=== PATIENT | female | born 1950 | race Caucasian/White ===

== ENCOUNTER 2017-11-12 12:42 | Emergency (ER) | payer MEDICARE ==
[2017-11-12] MEDS ORDERED: Ketorolac 30 MG/ML SDV IVPUSH ONE (13:02)
[2017-11-12] MEDS ORDERED: Prochlorperazine 10 MG/2 ML SDV IVPUSH ONE (13:02)
[2017-11-12] MEDS ORDERED: diphenhydrAMINE 50 MG/ML SDV IVPUSH ONE (13:02)
--- NOTE | 2017-11-12 13:08 | EDM.PDOC ---
ED HPI GENERAL MEDICAL PROBLEM - General Chief Complaint: Head Injury Stated Complaint: SLIPPED ON ICE AND HIT HEAD Time Seen by Provider: 11/12/17 12:50 Source of Information: Reports: Patient, RN History Limitations: Reports: No Limitations - History of Present Illness INITIAL COMMENTS - FREE TEXT/NARRATIVE: 67 yo female here with nausea, vomiting, and headache after slipping on the ice and hitting the back of her head. The fall was about 11 am today. No LOC. Is on no blood thinners. Denies neck pain. Does not recall when she last had a BP check before today. Onset: Today Onset Date: 11/12/17 Onset Time: 11:00 Duration: Minutes: Location: Reports: Head Quality: Reports: Ache Severity: Moderate Improves with: Reports: None Worsens with: Reports: None Context: Reports: Trauma Associated Symptoms: Reports: Headaches, Nausea/Vomiting. 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 Denies: Black Stool, Bloody Stool, Constipation, Diarrhea, Hematemesis, Hematochezia : Reports: No Symptoms Musculoskeletal: Denies: Neck Pain Skin: Reports: No Symptoms Neurological: Reports: Dizziness, Headache Psychiatric: Reports: No Symptoms ED EXAM, HEAD INJURY - Physical Exam Exam: See Below Exam Limited By: No Limitations General Appearance: Alert, WD/WN, No Apparent Distress Head: Scalp Swelling, Scalp Hematoma (just below the occiput posteriorly), Scalp Tenderness. No: Scalp Lacerations, Scalp Abrasions, Scalp Ecchymosis, Active Bleeding, Rosenbaum's Sign, Facial Abrasions, Facial Ecchymosis, Facial Lacerations, Facial Swelling, Sinus Tenderness, Facial Tenderness, Raccoon Eyes Nexus Criteria: No: Posterior, Midline Cervical Tenderness, Evidence of Intoxication, Altered Level of Consciousness, Focal Neurological Deficit Eyes: Bilateral Eye: EOMI, Normal Inspection, PERRL Ears: Normal External Exam, Normal Canal, Hearing Grossly Normal, Normal TMs Nose: Normal Inspection, Normal Mucousa, No Blood Throat/Mouth: Normal Inspection, Normal Lips, Normal Oropharynx, Normal Voice, No Airway Compromise Neck: Non-Tender, Full Range of Motion, Normal Alignment, Normal Inspection Respiratory: No Respiratory Distress, Lungs Clear, Normal Breath Sounds, No Accessory Muscle Use Cardiovascular: Regular Rate, Rhythm GI/Abdominal Exam: Soft Back Exam: Normal Inspection Extremities: Normal Inspection, Normal Range of Motion, Non-Tender, No Pedal Edema 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 As Tested, No Motor/Sensory Deficits, Normal Mood/ Affect, Oriented x 3 Skin: Normal Color, Warm/Dry - [place] Coma Score Best Eye Response ([place]): (4) Open Spontaneously Best Verbal Response ([place]): (5) Oriented Best Motor Response ([place]): (6) Obeys Commands [place] Total: 15 Course - Vital Signs Last Recorded V/S: Last Vital Signs Temp 35.7 C 11/12/17 12:50 Pulse 81 11/12/17 15:27 Resp 14 11/12/17 13:20 BP 189/104 H 11/12/17 15:27 Pulse Ox 93 L 11/12/17 14:23 - Orders/Labs/Meds Orders: Active Orders 24 hr Category Date Time Status Head wo Cont [CT] Stat Exams 11/12/17 14:01 Taken Lactated Ringers [Ringers, Lactated] 1,000 ml Med 11/12/17 13:15 Active IV ASDIRECTED Medication Orders Lactated Ringer's (Ringers, Lactated) 1,000 mls @ 500 mls/hr IV ASDIRECTED CHANCE Last Admin: 11/12/17 13:13 Dose: 500 mls/hr Labs: Laboratory Tests 11/12/17 Range/Units 13:33 Sodium 143 (140-148) mmol/L Potassium 3.6 (3.6-5.2) mmol/L Chloride 105 (100-108) mmol/L Carbon Dioxide 28 (21-32) mmol/L Anion Gap 9.9 (5.0-14.0) mmol/L BUN 17 (7-18) mg/dL Creatinine 0.8 (0.6-1.0) mg/dL Est Cr Clr Drug Dosing 52.90 mL/min Estimated GFR (MDRD) > 60 (>60) Glucose 107 H (74-106) mg/dL Calcium 9.3 (8.5-10.1) mg/dL Meds: Medications Generic Name Dose Route Start Last Admin Trade Name Freq PRN Reason Stop Dose Admin Lactated Ringer's 1,000 mls @ 500 mls/hr 11/12/17 13:15 11/12/17 13:13 Ringers, Lactated IV 500 mls/hr ASDIRECTED CHANCE Administration Discontinued Medications Generic Name Dose Route Start Last Admin Trade Name Freq PRN Reason Stop Dose Admin Diphenhydramine HCl 25 mg 11/12/17 13:02 11/12/17 13:17 Benadryl IVPUSH 11/12/17 13:03 25 mg ONETIME ONE Administration Hydrochlorothiazide 25 mg 11/12/17 14:56 11/12/17 15:26 Hydrochlorothiazide PO 11/12/17 14:57 25 mg ONETIME ONE Administration Ketorolac Tromethamine 15 mg 11/12/17 13:02 11/12/17 13:16 Toradol IVPUSH 11/12/17 13:03 15 mg ONETIME ONE Administration Labetalol HCl 20 mg 11/12/17 14:02 11/12/17 14:09 Normodyne IVPUSH 11/12/17 14:03 20 mg NOW ONE Administration Protocol Lisinopril 20 mg 11/12/17 14:56 11/12/17 15:23 Prinivil PO 11/12/17 14:57 20 mg ONETIME ONE Administration Prochlorperazine Edisylate 10 mg 11/12/17 13:02 11/12/17 13:14 Compazine IVPUSH 11/12/17 13:03 10 mg ONETIME ONE Administration - Radiology Interpretation Free Text/Narrative:: CT Head-occipital skull fx,non-displaced, small basilar subarachnoid hemorrhage CT Results Date: 11/12/17 CT Results Time: 15:15 Departure - Departure Time of Disposition: 15:36 Disposition: Home, Self-Care 01 Condition: Fair Clinical Impression: Concussion injury of brain, Subarachnoid bleed HTN (hypertension) Qualifiers: Hypertension type: unspecified Qualified Code(s): I10 - Essential (primary) hypertension Skull fracture Qualifiers: Encounter type: initial encounter Skull bone/location: occipital bone Fracture type: closed Occipital fracture type: unspecified fracture of occiput Laterality : right Qualified Code(s): S02.119A - Unspecified fracture of occiput, initial encounter for closed fracture - Discharge Information Prescriptions: Lisinopril/Hydrochlorothiazide [Lisinopril-Hctz 20-12.5 mg Tab] 1 each PO DAILY #14 tablet Ondansetron [Zofran ODT] 4 mg PO Q6H PRN #7 tab.dis PRN Reason: Nausea Referrals: PCP,None [Primary Care Provider] - Forms: ED Department Discharge Care Plan Goals: Take lisinoprl/HCT 20/12.5 one every morning starting tomorrow. Avoid salt. Take acetaminophen 1000 mg every 6 hrs for pain relief. Take Zofran as directed for nausea control. Avoid risk of head injury and rest for the next few days until you are feeling better. Recheck with your doctor later this week, call for an appt. - My Orders Last 24 Hours: My Active Orders 11/12/17 13:15 Lactated Ringers [Ringers, Lactated] 1,000 ml IV ASDIRECTED 11/12/17 14:01 Head wo Cont [CT] Stat - Assessment/Plan Last 24 Hours: My Active Orders 11/12/17 13:15 Lactated Ringers [Ringers, Lactated] 1,000 ml IV ASDIRECTED 11/12/17 14:01 Head wo Cont [CT] Stat
[2017-11-12] MEDS ORDERED: Lactated Ringers 1,000 ML IV SCH (13:15)
[2017-11-12] MEDS ORDERED: Labetalol 20 MG/4 ML Syringe IVPUSH ONE (14:02)
[2017-11-12] MEDS ORDERED: Lisinopril 10 MG Tab PO ONE (14:56)
[2017-11-12] MEDS ORDERED: Hydrochlorothiazide 25 MG Tab PO ONE (14:56)
== END 2017-11-12 15:50 | disposition home or self-care (01) ==
LOC: JP.ED 12:42
DX: S06.6X0A Traumatic subarachnoid hemorrhage without loss of consciousness, initial encounter (principal); S02.119A Unspecified fracture of occiput, initial encounter for closed fracture; Z87.891 Personal history of nicotine dependence; I10 Essential (primary) hypertension; Z79.899 Other long term (current) drug therapy; W00.0XXA Fall on same level due to ice and snow, initial encounter
CPT/HCPCS: 36415; 70450; 80048; 96361; 96374; 96375; 99284; A9270; J0780; J1200; J1885; J7120